=== PATIENT | female | born 1945 | race Caucasian/White ===

== ENCOUNTER 2020-03-09 22:47 | Observation (INO) | payer OTHER ==
[2020-03-10 01:31] LABS: Absolute Lymphocytes (CBC) 1.9 K/uL (0.7-4.9); Basophils % 0.9 % (0-1.3); Hematocrit 43.9 % (36.0-45.0); Lymphocytes % 23.1 % (15.3-44.8); MPV 7.9 fL (7.6-11.3); RBC Red Blood Cell Count 4.76 M/uL (3.86-4.86)
[2020-03-10 01:32] LABS: Protime INR 0.96
[2020-03-10 01:50] LABS: ALT/SGPT 17 U/L (12-78); Albumin 3.8 g/dL (3.4-5.0); Alkaline Phosphatase 44 U/L (45-117); BUN Blood Urea Nitrogen 7 mg/dL (7-18); Bicarbonate 24 mmol/L (21-32); Bilirubin Direct < 0.1 mg/dL (0-0.2); Bilirubin Total 0.4 mg/dL (0.2-1.0); Glucose Level 93 mg/dL (74-106); NT PRO-BNP 2042 pg/mL (<450); Protein, Total 7.2 g/dL (6.4-8.2); Sodium Level 134 mmol/L (136-145); Troponin (Emerg Dept Use Only) 0.04 ng/mL (0.0-0.045)
[2020-03-10 01:55] LABS: AST/SGOT 26 U/L (15-37); Magnesium 2.1 mg/dL (1.8-2.4); Potassium 3.6 mmol/L (3.5-5.1)
[2020-03-10] MEDS ORDERED: TETANUS & DIPHTHERIA TOX,ADULT 0.5 ML VIAL ONE (02:23)
[2020-03-10] MEDS ORDERED: ACETAMINOPHEN 500 MG TAB ONE (02:23)
--- NOTE | 2020-03-10 03:06 | EDPHYS ---
Physician Documentation [facility] Name: Mari Dawkins Age: 74 yrs Sex: Female : 1945 Arrival Date: 03/09/2020 Time: 22:51 Bed 13 Private MD: ED Physician Santhosh Bullock HPI: 03/09 23:51 This 74 yrs old Female presents to ER via Wheelchair with complaints of Fall mh7 Injury, Head Injury Without LOC-Adult. 23:51 Details of fall: The patient fell from an upright position, while standing. Onset: The mh7 symptoms/episode began/occurred today, at 22:00. Associated injuries: The patient sustained injury to the head, contusion, hematoma, right shoulder, right wrist, right hand, abrasion, contusion, painful injury, left hand, abrasion, contusion. Severity of symptoms: At their worst the symptoms were moderate, earlier today, in the emergency department the symptoms have improved, moderately. Historical: - Allergies: 23:12 Codeine; lp1 - Home Meds: 23:12 carvedilol 12.5 mg Oral tab 1 tab 2 times per day [Active]; losartan 100 mg Oral tab 1 lp1 tab once daily [Active]; - PMHx: 23:12 High Cholesterol; Hypertension; lp1 - PSHx: 23:12 None; lp1 - Immunization history:: Adult Immunizations up to date. - Social history:: Smoking status: Patient reports the use of cigarette tobacco products, smokes one-half pack cigarettes per day. - Immunization history: Last tetanus immunization: unknown. ROS: 23:51 Constitutional: Negative for fever, chills, and weight loss, Eyes: Negative for injury, mh7 pain, redness, and discharge, ENT: Negative for injury, pain, and discharge, Neck: Negative for injury, pain, and swelling, Cardiovascular: Negative for chest pain, palpitations, and edema, Respiratory: Negative for shortness of breath, cough, wheezing, and pleuritic chest pain, Abdomen/GI: Negative for abdominal pain, nausea, vomiting, diarrhea, and constipation, Back: Negative for injury and pain, : Negative for injury, bleeding, discharge, and swelling, Neuro: Negative for headache, weakness, numbness, tingling, and seizure, Psych: Negative for depression, anxiety, suicide ideation, homicidal ideation, and hallucinations, Allergy/Immunology: Negative for hives, rash, and allergies, Endocrine: Negative for neck swelling, polydipsia, polyuria, polyphagia, and marked weight changes, Hematologic/Lymphatic: Negative for swollen nodes, abnormal bleeding, and unusual bruising. Exam: 23:51 Constitutional: This is a well developed, well nourished patient who is awake, alert, mh7 and in no acute distress. 23:51 Eyes: Pupils equal round and reactive to light, extra-ocular motions intact. Lids and lashes normal. Conjunctiva and sclera are non-icteric and not injected. Cornea within normal limits. Periorbital areas with no swelling, redness, or edema. ENT: Nares patent. No nasal discharge, no septal abnormalities noted. Tympanic membranes are normal and external auditory canals are clear. Oropharynx with no redness, swelling, or masses, exudates, or evidence of obstruction, uvula midline. Mucous membranes moist. 23:51 Neck: Trachea midline, no thyromegaly or masses palpated, and no cervical lymphadenopathy. Supple, full range of motion without nuchal rigidity, or vertebral point tenderness. No Meningismus. Chest/axilla: Normal chest wall appearance and motion. Nontender with no deformity. No lesions are appreciated. Cardiovascular: Regular rate and rhythm with a normal S1 and S2. No gallops, murmurs, or rubs. Normal PMI, no JVD. No pulse deficits. Respiratory: Lungs have equal breath sounds bilaterally, clear to auscultation and percussion. No rales, rhonchi or wheezes noted. No increased work of breathing, no retractions or nasal flaring. Abdomen/GI: Soft, non-tender, with normal bowel sounds. No distension or tympany. No guarding or rebound. No evidence of tenderness throughout. Back: No spinal tenderness. No costovertebral tenderness. Full range of motion. Neuro: Awake and alert, GCS 15, oriented to person, place, time, and situation. Cranial nerves II-XII grossly intact. Motor strength 5/5 in all extremities. Sensory grossly intact. Cerebellar exam normal. Normal gait. Psych: Awake, alert, with orientation to person, place and time. Behavior, mood, and affect are within normal limits. 23:51 Head/face: Noted is contusion, that is superficial, of the forehead, hematoma, that is moderate, of the forehead. 23:51 ENT: TM's: hemotympanum, is not appreciated. Vital Signs: 23:12 BP 158 / 82; Pulse 57; Resp 18; Temp 97.6(TE); Pulse Ox 99% on R/A; Weight 68.04 kg lp1 (R); Height 5 ft. 2 in. (157.48 cm); Pain 0/10; 23:30 BP 165 / 96; Pulse 70; Resp 16; Temp 98.3; Pulse Ox 99% on R/A; ll2 03/10 00:30 BP 129 / 54; Pulse 69; Resp 16; Pulse Ox 99% on R/A; ll2 01:30 BP 142 / 71; Pulse 53; Resp 14; Pulse Ox 98% on R/A; ll2 02:30 BP 141 / 60; Pulse 78; Resp 15; Pulse Ox 99% on R/A; ll2 02:56 BP 160 / 68 Supine; Pulse 55; ll2 02:56 BP 141 / 60 Sitting; Pulse 38; ll2 02:56 BP 156 / 62 Standing; Pulse 39; ll2 03:30 BP 158 / 60; Pulse 65; Resp 17; Pulse Ox 99% on R/A; ll2 03/09 23:12 Body Mass Index 27.44 (68.04 kg, 157.48 cm) lp1 Jeanmarie Coma Score: 03/09 23:13 Eye Response: spontaneous(4). Verbal Response: oriented(5). Motor Response: obeys lp1 commands(6). Total: 15. Trauma Score (Adult): 23:13 Eye Response: spontaneous(1); Verbal Response: oriented(1); Motor Response: obeys lp1 commands(2); Systolic BP: > 89 mm Hg(4); Respiratory Rate: 10 to 29 per min(4); Jeanmarie Score: 15; Trauma Score: 12 MDM: 03/10 03:02 Differential diagnosis: abrasion, closed head injury, contusion, fracture, laceration, mh7 sprain. Data reviewed: vital signs, nurses notes, old medical records, lab test result(s), cardiac enzymes, CBC, electrolytes, EKG, radiologic studies, CT scan, plain films. Data interpreted: Pulse oximetry: on room air is 99 %. Interpretation: normal. Counseling: I had a detailed discussion with the patient and/or guardian regarding: the historical points, exam findings, and any diagnostic results supporting the discharge/admit diagnosis, the presence of at least one elevated blood pressure reading (>120/80) during this emergency department visit, lab results, radiology results, the need for further work-up and treatment in the hospital. Response to treatment: the patient's symptoms have markedly improved after treatment. 03:05 Patient medically screened. [facility] 03/09 23:51 Order name: Basic Metabolic Panel [facility] 03/09 23:51 Order name: CBC with Diff; Complete Time: 01:44 [facility] 03/09 23:51 Order name: LFT's; Complete Time: 02:03 [facility] 03/09 23:51 Order name: Magnesium; Complete Time: 02:03 [facility] 03/09 23:51 Order name: NT PRO-BNP; Complete Time: 02:03 [facility] 03/09 23:51 Order name: PT-INR; Complete Time: 01:44 [facility] 03/09 23:51 Order name: Troponin (emerg Dept Use Only); Complete Time: 02:03 [facility] 03/09 23:51 Order name: Basic Metabolic Panel; Complete Time: 02:03 [facility] 03/10 03:54 Order name: COVID-19 lp1 03/10 04:03 Order name: CORONAVIRUS [facility] 03/10 04:09 Order name: Urine Dipstick--Ancillary (enter results) tt3 03/10 05:34 Order name: SARS-COV-2 RT PCR [facility] 03/10 08:30 Order name: Troponin I [facility] 03/10 08:30 Order name: T4 Free [facility] 03/09 23:51 Order name: XRAY Chest (1 view) [facility] 03/09 23:51 Order name: EKG; Complete Time: 23:51 [facility] 03/09 23:51 Order name: Cardiac monitoring; Complete Time: 01:21 [facility] 03/09 23:51 Order name: EKG - Nurse/Tech; Complete Time: 02:30 [facility] 03/09 23:51 Order name: IV Saline Lock; Complete Time: 01:21 [facility] 03/09 23:51 Order name: CT Head C Spine [facility] 03/09 23:51 Order name: Shoulder Right (2 View) XRAY [facility] 03/09 23:51 Order name: Wrist Right 3 View XRAY [facility] 03/09 23:51 Order name: Hand Right 3 View XRAY [facility] 03/09 23:51 Order name: Hand Left 3 View XRAY [facility] 03/10 08:30 Order name: Thyroid Stimulating Hormone [facility] 03/10 09:30 Order name: US [facility] 03/10 10:41 Order name: MRI [facility] 03/10 12:33 Order name: Troponin I [facility] 03/09 23:51 Order name: Labs collected and sent; Complete Time: : [facility] 03/09 23:51 Order name: O2 Per Protocol; Complete Time: : [facility] 03/09 23:51 Order name: O2 Sat Monitoring; Complete Time: [facility] 03/09 23:51 Order name: Urine Dipstick-Ancillary (obtain specimen); Complete Time: 04:06 [facility] 03/10 03:08 Order name: Orthostatics; Complete Time: 04:06 la1 Administered Medications: 02:30 Drug: Tylenol 1000 mg Route: PO; ll2 03:00 Follow up: Response: No adverse reaction 2 02:31 Drug: Tetanus-Diphtheria Toxoid Adult 0.5 ml {Motor Room Controller: [employer]. Exp: ll2 06/19/2021. Lot #: [id number]. } Route: IM; Site: right deltoid; 03:30 Follow up: Response: No adverse reaction 2 Disposition: 03/10/20 03:05 Hospitalization ordered by David Freire for Observation. Preliminary diagnosis are Near Syncope, Multiple Contusions/Abrasions. - Bed requested for [facility] ER HOLD. - Status is Observation. ph - Condition is Stable. - Problem is new. - Symptoms have improved. Signatures: Dispatcher [employer] [facility] Makayla Garcia RN RN lp1 Deacon Davis, VESSEL CREW MEMBER-C [employer]SEL [employer] MEMBER-Cla1 Carri Pro RN RN ph Garcia, Cindy, RN RN cg Johanna Leigh RN RN 2 Santhosh Bullock MD MD 7 Corrections: (The following items were deleted from the chart) 03:39 03:05 Hospitalization Ordered by David Freire MD for Observation. Preliminary cg diagnosis is Near Syncope; Multiple Contusions/Abrasions. Bed requested for Telemetry/MedSurg (observation). Status is Observation. Condition is Stable. Problem is new. Symptoms have improved. mh7 14:29 03:39 03/10/2020 03:05 Hospitalization Ordered by David Freire MD for Observation. ph Preliminary diagnosis is Near Syncope; Multiple Contusions/Abrasions. Bed requested for [facility] ER HOLD. Status is Observation. Condition is Stable. Problem is new. Symptoms have improved. cg
--- NOTE | 2020-03-10 03:06 | ER ---
Nurse's Notes [facility] Name: Mari Dawkins Age: 74 yrs Sex: Female : 1945 Arrival Date: 03/09/2020 Time: 22:51 Bed 13 Private MD: Diagnosis: Near Syncope;Multiple Contusions/Abrasions Presentation: 03/09 23:10 Chief complaint: Patient states: Reports got dizzy while in the kitchen and fell, lp1 hitting head on stove; Denies LOC; reports abrasions to right forearm. Care prior to arrival: None. Mechanism of Injury: Fall from standing position. Trauma event details: Injury occurred in the [facility], Injury occurred: at home. Injury occurred: March 09, 2020 Injury occurred at: 22:00. 23:10 Acuity: TREASURE 2 lp1 23:10 Method Of Arrival: Wheelchair lp1 23:12 Coronavirus screen: Client denies travel out of the [place] in the last 14 days. At this lp1 time, the client does not indicate any symptoms associated with coronavirus-19. Ebola Screen: No symptoms or risks identified at this time. Initial Sepsis Screen: Does the patient meet any 2 criteria? No. Patient's initial sepsis screen is negative. Does the patient have a suspected source of infection? No. Patient's initial sepsis screen is negative. Risk Assessment: Do you want to hurt yourself or someone else? Patient reports no desire to harm self or others. Onset of symptoms was March 09, 2020 at 22:00. Trauma Activation: Alert Physician: ED Physician; Name: Dr. Bullock; Notified At: 23:17; Arrived At: 23:17 Physician: General Surgeon; Name: ; Notified At: 23:17; Arrived At: Physician: Radiology; Name: Oswald Herrmann; Notified At: 23:17; Arrived At: 23:20 Physician: Respiratory; Name: ; Notified At: 23:17; Arrived At: Physician: Lab; Name: ; Notified At: 23:17; Arrived At: Historical: - Allergies: 23:12 Codeine; lp1 - Home Meds: 23:12 carvedilol 12.5 mg Oral tab 1 tab 2 times per day [Active]; losartan 100 mg Oral tab 1 lp1 tab once daily [Active]; - PMHx: 23:12 High Cholesterol; Hypertension; lp1 - PSHx: 23:12 None; lp1 - Immunization history:: Adult Immunizations up to date. - Social history:: Smoking status: Patient reports the use of cigarette tobacco products, smokes one-half pack cigarettes per day. - Immunization history: Last tetanus immunization: unknown. Screenin:13 Abuse screen: Denies threats or abuse. Denies injuries from another. Nutritional lp1 screening: No deficits noted. Tuberculosis screening: No symptoms or risk factors identified. Primary Survey: 23:14 NO uncontrolled hemorrhage observed. A: The patient is alert. Airway: patent, No lp1 supplemental oxygen in use on arrival. Breathing/Chest: Respiratory pattern: regular, Respiratory effort: spontaneous, unlabored. Circulation: Skin color: pink, Skin temperature: warm, dry. Disability Alert. Exposure/Environment: Obvious injury(ies) are noted at this time: hematoma noted to forehead. 03/10 01:00 Reassessment Breathing/Chest Respiratory pattern Regular Respiratory effort Spontaneous.ll2 02:00 Reassessment Airway Airway Patent. ll2 Assessment: 03/09 23:40 General: Appears in no apparent distress. Behavior is calm, cooperative, appropriate ll2 for age. Pain: Complains of pain in forehead and left hand. Neuro: Level of Consciousness is awake, alert, obeys commands, Oriented to person, place, time, situation. Cardiovascular: Patient's skin is warm and dry. Respiratory: Airway is patent Respiratory effort is even, unlabored, Respiratory pattern is regular, symmetrical. GI: No signs and/or symptoms were reported involving the gastrointestinal system. : No signs and/or symptoms were reported regarding the genitourinary system. EENT: No signs and/or symptoms were reported regarding the EENT system. Derm: large knot to forehead. Musculoskeletal: Circulation, motion, and sensation intact. Range of motion: intact in all extremities. 03/10 00:40 Reassessment: Patient and/or family updated on plan of care and expected duration. Pain ll2 level reassessed. Patient is alert, oriented x 3, equal unlabored respirations, skin warm/dry/pink. 01:44 Reassessment: Patient and/or family updated on plan of care and expected duration. Pain ll2 level reassessed. Patient is alert, oriented x 3, equal unlabored respirations, skin warm/dry/pink. 02:45 Reassessment: Patient and/or family updated on plan of care and expected duration. Pain ll2 level reassessed. Patient is alert, oriented x 3, equal unlabored respirations, skin warm/dry/pink. pt moved to hospital bed, resting comfortably. Vital Signs: 03/09 23:12 BP 158 / 82; Pulse 57; Resp 18; Temp 97.6(TE); Pulse Ox 99% on R/A; Weight 68.04 kg lp1 (R); Height 5 ft. 2 in. (157.48 cm); Pain 0; 23:30 BP 165 / 96; Pulse 70; Resp 16; Temp 98.3; Pulse Ox 99% on R/A; ll2 03/10 00:30 BP 129 / 54; Pulse 69; Resp 16; Pulse Ox 99% on R/A; ll2 01:30 BP 142 / 71; Pulse 53; Resp 14; Pulse Ox 98% on R/A; ll2 02:30 BP 141 / 60; Pulse 78; Resp 15; Pulse Ox 99% on R/A; ll2 02:56 BP 160 / 68 Supine; Pulse 55; ll2 02:56 BP 141 / 60 Sitting; Pulse 38; ll2 02:56 BP 156 / 62 Standing; Pulse 39; ll2 03:30 BP 158 / 60; Pulse 65; Resp 17; Pulse Ox 99% on R/A; ll2 03/09 23:12 Body Mass Index 27.44 (68.04 kg, 157.48 cm) lp1 Jeanmarie Coma Score: 03/09 23:13 Eye Response: spontaneous(4). Verbal Response: oriented(5). Motor Response: obeys lp1 commands(6). Total: 15. Trauma Score (Adult): 23:13 Eye Response: spontaneous(1); Verbal Response: oriented(1); Motor Response: obeys lp1 commands(2); Systolic BP: > 89 mm Hg(4); Respiratory Rate: 10 to 29 per min(4); Jeanmarie Score: 15; Trauma Score: 12 ED Course: 22:51 Patient arrived in ED. cf2 23:11 Triage completed. lp1 23:11 Arm band placed on left wrist. lp1 23:14 Patient maintains SpO2 saturation greater than 95% on room air. lp1 23:34 Santhosh Bullock MD is Attending Physician. mh7 23:43 Johanna Leigh, RN is Primary Nurse. ll2 23:45 No provider procedures requiring assistance completed. ll2 03/10 00:29 CT Head C Spine In Process Unspecified. EDMS 01:00 Patient has correct armband on for positive identification. Placed in gown. Bed in low ll2 position. Call light in reach. Side rails up X 1. Initial lab(s) drawn, sent to lab. 01:20 Initial lab(s) drawn, by me, sent to lab. Inserted saline lock: 20 gauge in right lp1 antecubital area, using aseptic technique. Blood collected. 01:32 XRAY Chest (1 view) In Process Unspecified. EDMS 01:33 Shoulder Right (2 View) XRAY In Process Unspecified. EDMS 01:34 Wrist Right 3 View XRAY In Process Unspecified. EDMS 01:35 Hand Right 3 View XRAY In Process Unspecified. EDMS 01:36 Hand Left 3 View XRAY In Process Unspecified. EDMS 03:04 David Freire MD is Hospitalizing Provider. mh7 04:06 CORONAVIRUS Sent. ll2 04:06 Basic Metabolic Panel Sent. ll2 04:06 COVID-19 Sent. ll2 04:13 Thermoregulation: warm blanket given to patient. ll2 Administered Medications: 02:30 Drug: Tylenol 1000 mg Route: PO; ll2 03:00 Follow up: Response: No adverse reaction ll2 02:31 Drug: Tetanus-Diphtheria Toxoid Adult 0.5 ml {And Taxi Instructor Bus Trolley: [employer] Exp: ll2 06/19/2021. Lot #: [id number]. } Route: IM; Site: right deltoid; 03:30 Follow up: Response: No adverse reaction ll2 Outcome: 03:05 Decision to Hospitalize by Provider. mh7 04:13 Patient's length of stay in the Emergency Department was greater than 2 hours. due to ll2 imaging Patient's length of stay extended due to 14:29 Patient left the ED. ph Signatures: Dispatcher [employer] EDMS Makayla Garcia RN RN lp1 Carri Pro RN RN ph Michelle Montague 2 Johanna Leigh RN RN ll2 Santhosh Bullock MD MD 7
--- NOTE | 2020-03-10 03:37 | P.HP ---
Certification for Inpatient Patient admitted to: Observation With expected LOS: <2 Midnights Patient will require the following post-hospital care: None Practitioner: I am a practitioner with admitting privileges, knowledge of patient current condition, hospital course, and medical plan of care. Services: Services provided to patient in accordance with Admission requirements found in Title 42 Section 412.3 of the Code of Federal Regulations <Deacon Davis - Last Filed: 03/10/20 03:34> Patient History Date of Service: 03/10/20 Primary Care Provider: Dr. Lott (OOT currently) Reason for admission: Syncope History of Present Illness: 74-year-old female with history of hypertension, hyperlipidemia, vertigo presents to the emergency department for syncope and fall. Patient reports that she is standing in her kitchen and had a fall, she is unable to discern why she fell. Patient does have a history of falling due to vertigo but she states that she cannot say for sure that this was the cause tonight, states that this fall did seem different as she was not really feeling dizzy prior to falling. Patient did fall and hit her head, patient had chest x-ray, extremity x-ray, head C-spine CT in the emergency department all of which were negative for acute findings. Labs unremarkable aside from elevated BNP 2042. Patient denies any chest pain, shortness of breath, palpitations, headache. No focal neurological deficits noted on exam, patient awake alert oriented x3. Patient states she is feeling well at this time, patient noted to be mildly bradycardic on threat monitoring analyst at bedside with heart rate as low as the high 40s EKG with sinus bradycardia. Patient does take beta-lety. Orthostatics vital signs pending. ED provider wishes to admit patient for further evaluation and management. - Past Medical/Surgical History Diabetic: No -: HTN -: High Cholesterol -: Hyst -: Tonsilectomy Psychosocial/ Personal History: Patient is retired and lives with her - Family History Father -: Cancer Notes: Lung CA Mother -: Cancer Notes: Uterine Cancer Sister Notes: TB - Social History Smoking Status: Never smoker Alcohol use: Yes CD- Drugs: No Caffeine use: Yes Place of Residence: Home <Deacon Davis - Last Filed: 03/10/20 03:34> Date of Service: 03/10/20 <David Freire - Last Filed: 03/19/20 00:50> Allergies codeine Allergy (Mild, Verified 11/24/16 23:04) Unknown Home Medications: Ascorbic Acid [Vitamin C*] 500 mg PO DAILY 11/24/16 Aspirin [Aspirin EC 81 MG] 81 mg PO DAILY 11/24/16 Fluticasone [Flonase 50MCG Nasal Eagle*] 2 spray SERINA DAILY 11/24/16 Losartan Potassium 100 mg PO DAILY 11/24/16 Multivitamin [Multiple Vitamins] 1 tab PO DAILY 11/24/16 Raloxifene HCl [Evista*] 60 mg PO DAILY 11/24/16 carvediloL [Coreg*] 12.5 mg PO BID 11/24/16 Ciprofloxacin HCl [Cipro 500 MG Tablet] 500 mg PO BID #14 tab 12/03/16 Famotidine [Pepcid] 20 mg PO BID #60 tab 12/03/16 Review of Systems Unremarkable <Deacon Davis - Last Filed: 03/10/20 03:34> Physical Examination - Physical Exam General: Alert, In no apparent distress HEENT: Atraumatic, PERRLA, Mucous membr. moist/pink, EOMI, Sclerae nonicteric Neck: Supple, 2+ carotid pulse no bruit, No LAD, Without JVD or thyroid abnormality Respiratory: Clear to auscultation bilaterally, Normal air movement Cardiovascular: Regular rate/rhythm, Normal S1 S2 Gastrointestinal: Normal bowel sounds, No tenderness Musculoskeletal: No tenderness Integumentary: No rashes Neurological: Normal speech, Normal strength at 5/5 x4 extr, Normal tone, Normal affect - Studies Laboratory Data (last 24 hrs) 03/10/20 01:15: PT 11.3, INR 0.96 03/10/20 01:15: WBC 8.1, Hgb 14.7, Hct 43.9, Plt Count 291 03/10/20 01:15: Sodium 134 L, Potassium 3.6, BUN 7, Creatinine 0.53 L, Glucose 93, Magnesium 2.1, Total Bilirubin 0.4, AST 26, ALT 17, Alkaline Phosphatase 44 L <Deacon Davis - Last Filed: 03/10/20 03:34> Assessment and Plan - Plan Assessment Syncope and collapse with bradycardia Hypertension Hyperlipidemia Vertigo Plan Syncope and collapse with bradycardia: Monitor on telemetry, hold beta-lety. Echocardiogram, carotid Doppler, MRI without contrast ordered. Orthostatics vital signs pending. DVT prophylaxis with Lovenox. Hypertension: Hold metoprolol, continue other home medication. Hyperlipidemia: Obtain and continue home medications Vertigo: Obtain and continue home medications. Patient without any nystagmus on exam, not currently feeling dizzy. Discharge Plan: Home Plan to discharge in: 24 Hours - Advance Directives Does patient have a Living Will: No Does patient have a Durable POA for Healthcare: Yes - Code Status/Comfort Care Code Status Assessed: Yes (Full code) Critical Care: No Time Spent Managing Pts Care (In Minutes): 55 <Deacon Davis - Last Filed: 03/10/20 03:34> Date of Service: 03/10/20 Chart reviewed. The events of the last 24 hours noted. Patient will be admitted and worked up for further evaluation. <David Freire - Last Filed: 03/19/20 00:50>
[2020-03-10] MEDS ORDERED: ACETAMINOPHEN 500 MG TAB PO PRN (04:21)
[2020-03-10] MEDS ORDERED: NA CHLORIDE 0.9% 1,000 ML IV SCH (04:21)
[2020-03-10] MEDS ORDERED: ONDANSETRON 4 MG/2 ML VIAL IV PRN (04:21)
[2020-03-10] MEDS ORDERED: NA CHLORIDE 0.9% 1,000 ML ONE (07:11)
--- NOTE | 2020-03-10 07:20 | EKG ---
Test Date: 2020-03-10 Test Time: 02:19:50 Electric Meter Setter: TROY MEASUREMENT RESULTS: Intervals: Rate: 65 GA: 170 QRSD: 168 QT: 528 QTc: 549 [place]: P: 76 GA: 170 QRS: -22 T: 96 INTERPRETIVE STATEMENTS: Normal sinus rhythm Biatrial enlargement Left bundle branch block Abnormal ECG Compared to ECG 07/19/2014 23:39:47 No significant changes Electronically Signed On 03-10-20 07:20:12 [employer] REFINISHER by Filiberto Crane
[2020-03-10 07:37] VITALS: BMI 28.4
--- NOTE | 2020-03-10 08:06 | RAD REPORT ---
EXAM DESCRIPTION: Teodora Single View03/10/2020 1:32 am CLINICAL HISTORY: Chest pain COMPARISON: none FINDINGS: The lungs appear clear of acute infiltrate. The heart is normal size IMPRESSION: No acute abnormalities displayed
--- NOTE | 2020-03-10 08:07 | RAD REPORT ---
EXAM DESCRIPTION: RAD - Wrist Right 3 View - 03/10/2020 1:34 am CLINICAL HISTORY: Right wrist pain status post injury FINDINGS: No fracture or dislocation is seen. If the patient continues to have symptoms to suggest a n occult fracture then a followup plain film series in 7 days would be recommended. The bones are osteoporotic
--- NOTE | 2020-03-10 08:09 | RAD REPORT ---
EXAM DESCRIPTION: RAD - Hand Right 3 View - 03/10/2020 1:34 am CLINICAL HISTORY: Right hand pain status post injury FINDINGS: No fracture or dislocation is seen. Bones are osteoporotic
--- NOTE | 2020-03-10 08:10 | RAD REPORT ---
EXAM DESCRIPTION: RAD -Hand Left 3 View - 03/10/2020 1:35 am CLINICAL HISTORY: Left hand pain status post injury FINDINGS: No fracture or dislocation is seen. The bones are osteoporotic
[2020-03-10 08:11] LABS: Troponin I 0.05 ng/mL (0.0-0.045)
[2020-03-10] MEDS ORDERED: POTASSIUM CL SA 10 MEQ TAB PO ONE ×2 (08:12→09:00)
--- NOTE | 2020-03-10 08:12 | RAD REPORT ---
EXAM DESCRIPTION: RAD - Shoulder Right 2 View - 03/10/2020 1:33 am CLINICAL HISTORY: Right shoulder pain FINDINGS: The bones are osteoporotic. Cortical regularity involves the inferior aspect of the distal acromion process. This is equivocal fo r a fracture. If clinically indicated further evaluation could be obtained with CT. Otherwise, no fracture or dislocation
[2020-03-10 08:29] LABS: Thyroid Stimulating Hormone 3.81 uIU/mL (0.360-3.740)
--- NOTE | 2020-03-10 09:29 | RAD REPORT ---
EXAM DESCRIPTION: USCarotid Artery Bilateral03/10/2020 7:43 am CLINICAL HISTORY: syncope COMPARISON: None FINDINGS: The velocity of the right internal carotid artery equals 70 cm/sec. The right ICA/CCA rati o 1. The velocity of the left internal carotid artery equals 76 cm/sec. The left ICA/CCA ratio .8 Mild plaque is present within the carotid arteries. The vertebral arteries demonstrate antegrade flow IMPRESSION: Mild plaque within the carotid arteries without evidence of a hemodynamically significan t stenosis NASCET criteria used. Mild 0-49% stenosis Moderate 50-69% stenosis Severe 70-99% stenosis
--- NOTE | 2020-03-10 10:40 | RAD REPORT ---
EXAM DESCRIPTION: MRI - Brain Wo Cont - 03/10/2020 9:22 am CLINICAL HISTORY: Syncope COMPARISON: March 09, 2020 cat scan TECHNIQUE: Axial, sagittal, and coronal magnetic images of the brain were obtained. Contrast was not requested FINDINGS: Frontal scalp hematoma is unchanged. Mild signal within periventricular, deep and subcortical white matter likely ischemic changes seconda ry to small vessel disease 2.3 centimeter fluid collection along the left frontal convexity may represent an arachnoid cyst. Diffusion-weighted/ADC mapping does not reveal evidence of acute infarction. The ventricles are normal caliber. Fluid within the sinuses/mastoids is not noted IMPRESSION: No acute abnormality is displayed
--- NOTE | 2020-03-10 12:09 | P.DS ---
Discharge Date: 03/10/20 Primary Care Provider: Dr. Lott (OOT currently) Disposition: ROUTINE DISCHARGE Discharge Condition: GOOD Reason for Admission: Syncope Brief History of Present Illness: Patient is a 74-year-old female with history of hypertension, hyperlipidemia, vertigo presents to the emergency department for syncope and fall. Patient reports that she is standing in her kitchen and had a fall, she is unable to discern why she fell. Patient does have a history of falling due to vertigo but she states that she cannot say for sure that this was the cause tonight, states that this fall did seem different as she was not really feeling dizzy prior to falling. Patient did fall and hit her head, patient had chest x- ray, extremity x-ray, head C-spine CT in the emergency department all of which were negative for acute findings. Labs unremarkable aside from elevated BNP 2042. Patient denies any chest pain, shortness of breath, palpitations, headache. No focal neurological deficits noted on exam, patient awake alert oriented x3. Patient states she is feeling well at this time, patient noted to be mildly bradycardic on director cardiac at bedside with heart rate as low as the high 40s EKG with sinus bradycardia. Patient does take beta-lety. Orthostatics vital signs pending. ED provider wishes to admit patient for further evaluation and management. Hospital Course: Patient's workup was unremarkable. Carotid Doppler showed some mild plaquing. Echocardiogram did not reveal any significant abnormality. MRI did not reveal any infarct. At this time, patient is stable for discharge with outpatient follow with cardiology and neurology for further evaluation of syncope. Vital Signs/Physical Exam: Temp Pulse Resp BP Pulse Ox 98.8 F 73 16 144/80 H 100 03/10/20 08:00 03/10/20 08:00 03/10/20 08:00 03/10/20 08:00 03/10/20 08:00 General: Alert, In no apparent distress, Oriented x3 Laboratory Data at Discharge: WBC 8.1 K/uL (4.3-10.9) 03/10/20 01:15 Hgb 14.7 g/dL (12.0-15.0) 03/10/20 01:15 Hct 43.9 % (36.0-45.0) 03/10/20 01:15 Plt Count 291 K/uL (152-406) 03/10/20 01:15 PT 11.3 SECONDS (9.5-12.5) 03/10/20 01:15 INR 0.96 03/10/20 01:15 Sodium 134 mmol/L (136-145) L 03/10/20 01:15 Potassium 3.6 mmol/L (3.5-5.1) 03/10/20 01:15 BUN 7 mg/dL (7-18) 03/10/20 01:15 Creatinine 0.53 mg/dL (0.55-1.3) L 03/10/20 01:15 Glucose 93 mg/dL (74-106) 03/10/20 01:15 Magnesium 2.1 mg/dL (1.8-2.4) 03/10/20 01:15 Total Bilirubin 0.4 mg/dL (0.2-1.0) 03/10/20 01:15 AST 26 U/L (15-37) 03/10/20 01:15 ALT 17 U/L (12-78) 03/10/20 01:15 Alkaline Phosphatase 44 U/L (45-117) L 03/10/20 01:15 Troponin I 0.05 ng/mL (0.0-0.045) H 03/10/20 06:00 Home Medications: Ascorbic Acid [Vitamin C*] 500 mg PO DAILY 11/24/16 Aspirin [Aspirin EC 81 MG] 81 mg PO DAILY 11/24/16 Fluticasone [Flonase 50MCG Nasal [place]*] 2 spray SERINA DAILY 11/24/16 Losartan Potassium 100 mg PO DAILY 11/24/16 Multivitamin [Multiple Vitamins] 1 tab PO DAILY 11/24/16 Raloxifene HCl [Evista*] 60 mg PO DAILY 11/24/16 carvediloL [Coreg*] 12.5 mg PO BID 11/24/16 Ciprofloxacin HCl [Cipro 500 MG Tablet] 500 mg PO BID #14 tab 12/03/16 Famotidine [Pepcid] 20 mg PO BID #60 tab 12/03/16 Patient Discharge Instructions: OK TO DC IV AND DC HOME. FOLLOW-UP WITH PRIMARY CARE PROVIDER IN 1-2 WEEKS. FOLLOW-UP WITH CARDIOLOGY IN 1-2 WEEKS. RETURN TO THE ER IF symptoms worsen. CALL or TEXT DR. LY AT [phone] IF ANY QUESTIONS REGARDING HOSPITAL STAY. PLEASE CALL THE FLOOR AT [phone] IF ANY MEDICATION OR NURSING QUESTIONS. Diet: AHA Activity: Ad luda Followup: Filiberto Crane MD [ACTIVE - CAN ADMIT] - Jose Lott MD [Primary Care Provider] - Time spent managing pt's care (in minutes): 35
[2020-03-10 12:13] VITALS: BP 111/72; TEMP 98; O2SAT 99
--- NOTE | 2020-03-10 13:21 | RAD REPORT ---
EXAM DESCRIPTION: CT - Head C Spine Mpr Wo Con - 03/10/2020 8:58 am CLINICAL HISTORY: Trauma/pain COMPARISON: None available TECHNIQUE: Axial CT of the head obtained from the skull apex to the skull base without contrast. Axi al CT images of the cervical spine obtained from the skull base through the thoracic inlet. Sagittal and coronal reformatted images available. FINDINGS: CT head: No acute intracranial hemorrhage identified. No mass, mass effect, shift of the midline, abnormal ext ra-axial fluid collection or CT evidence of acute ischemic change identified. Mild enlargement of robert tricular system and sulcal spaces compatible with cerebral atrophy. Scattered areas of hypodensity in the supratentorial white matter are nonspecific and may represent sequela of chronic small vessel ischemic change. The visualized paranasal sinuses and the mastoids are clear. No skull fracture identified. Visual ized orbits and globes are unremarkable. Atherosclerotic calcification of the paraclinoid internal ca rotid arteries. Contusion in the left frontal and right lateral scalp subcutaneous soft tissues. Cervical CT: Straightening of the cervical lordosis may be secondary to patient positioning. The atlantoaxial, a tlantodental, and occipitoatlantal intervals are preserved. No fracture identified. Vertebral body height preserved. Prevertebral soft tissues are unremarkable. 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 Visualized skull base is intact. No fracture of the visualized facial bones. Visualized mastoid air c ells and paranasal sinuses are well aerated. Visualized thyroid is unremarkable. No cervical lymphadenopathy. No pneumothorax in the visualized lung apices. Carotid artery atherosclerosis. IMPRESSION: 1. No acute intracranial abnormality. 2. No acute fracture or subluxation of the cervical spine. 3. Multilevel degenerative change of the cervical spine. This exam was performed according to our departmental dose-optimization program, which includes autom ated exposure control, adjustment of the mA and/or kV according to patient size and/or use of iterati ve reconstruction technique. Electronically signed by: Irvin Artis 03/10/2020 12:38 AM ELECTROMEDICAL EQUIPMENT TECHNICIAN Due to temporary technical issues with the PACS/Fluency reporting system, reports are being signed by the in house radiologists without review as a courtesy to insure prompt reporting. The interpreting radiologist is fully responsible for the content of the report.
--- NOTE | 2020-03-10 14:47 | ECHO ---
HEIGHT: 5 ft 2 in WEIGHT: 155 lb 4.8 oz DATE OF STUDY: 03/10/[address]: Deacon Davis NP 2-DIMENSIONAL: YES M.MODE: YES DOPPLER: YES COLOR FLOW: YES TDS: PORTABLE: DEFINITY: BUBBLE STUDY: DIAGNOSIS: SYNCOPE CARDIAC HISTORY: CATHERIZATION: SURGERY: PROSTHETIC VALVE: PACEMAKER: MEASUREMENTS (cm) DIASTOLIC (NORMALS) SYSTOLIC (NORMALS) IVSd 1.0 (0.6-1.2) LA Diam (1.9-4.0) LVEF 59% LVIDd 4.5 (3.5-5.7) LVIDs 3.1 (2.0-3.5) %FS 31% LVPWd 1.0 (0.6-1.2) Ao Diam 2.5 (2.0-3.7) 2 DIMENSIONAL ASSESSMENT: RIGHT ATRIUM: NORMAL LEFT ATRIUM: NORMAL RIGHT VENTRICLE: NORMAL LEFT VENTRICLE: NORMAL TRICUSPID VALVE: NORMAL MITRAL VALVE: MITRAL ANNULAR CALCIFICATION PULMONIC VALVE: NORMAL AORTIC VALVE: SCLEROSIS PERICARDIAL EFFUSION: NONE AORTIC ROOT: LEFT VENTRICULAR WALL MOTION: NORMAL DOPPLER/COLOR FLOW: MILD TRICUSPID REGURGITATION. NORMAL RIGHT VENTRICULAR SYSTOLIC PRESSURE 35 mmHg. COMMENTS: MILD TRICUSPID REGURGITATION. NORMAL RIGHT VENTRICULAR SYSTOLIC PRESSURE. MITRAL ANNULAR CALCIFICATION. AORTIC SCLEROSIS, NO STENOSIS. NORMAL LEFT VENTRICULAR SIZE AND FUNCTION. TECHNOLOGIST: BRENDAN TODD
== END 2020-03-10 14:33 | disposition home or self-care (01) ==
LOC: ER 22:47 → ERHOLD 03-10 03:14
PROVIDERS: ADMIT Hospitalist; ATTEND Hospitalist
DX: R55 Syncope and collapse (principal); Z20.822 Contact with and (suspected) exposure to COVID-19; R94.31 Abnormal electrocardiogram [ECG] [EKG]; I10 Essential (primary) hypertension; E78.5 Hyperlipidemia, unspecified; E78.00 Pure hypercholesterolemia, unspecified; F17.210 Nicotine dependence, cigarettes, uncomplicated; Z23 Encounter for immunization
CPT/HCPCS: 93005; 93306; 85025; 80048; 36415; 83735; 85610; 80076; 84443; 84484 ×3; 84439; 83880; 70450; 72125; 71045; 73130 ×2; 73030; 73110; 90471; 93880; 70551; 90714; 99284; U0003; J7030; G0378 ×2; G0390

== ENCOUNTER 2020-11-12 22:47 | Observation (INO) | payer OTHER ==
[2020-11-13 00:38] LABS: Protime INR 1.02
[2020-11-13 00:40] LABS: Absolute Lymphocytes (CBC) 1.5 K/uL (0.7-4.9); Basophils % 0.5 % (0-1.3); Hematocrit 44.2 % (36.0-45.0); Lymphocytes % 13.8 % (15.3-44.8); MPV 7.6 fL (7.6-11.3); RBC Red Blood Cell Count 4.78 M/uL (3.86-4.86)
[2020-11-13 00:59] LABS: ALT/SGPT 19 U/L (12-78); AST/SGOT 25 U/L (15-37); Albumin 4.1 g/dL (3.4-5.0); Alkaline Phosphatase 51 U/L (45-117); BUN Blood Urea Nitrogen 8 mg/dL (7-18); Bicarbonate 20 mmol/L (21-32); Bilirubin Direct 0.3 mg/dL (0-0.2); Bilirubin Total 0.8 mg/dL (0.2-1.0); Glucose Level 96 mg/dL (74-106); Magnesium 1.8 mg/dL (1.8-2.4); Potassium 3.5 mmol/L (3.5-5.1); Protein, Total 7.3 g/dL (6.4-8.2); Sodium Level 133 mmol/L (136-145); Troponin (Emerg Dept Use Only) 0.05 ng/mL (0.0-0.045)
[2020-11-13 02:17] LABS: Urine Bacteria <20 /HPF (<20); Urine RBC NONE SEEN /HPF (NONE SEEN)
--- NOTE | 2020-11-13 02:58 | ER ---
Nurse's Notes [facility] Name: Mari Dawkins Age: 75 yrs Sex: Female : 1945 Arrival Date: 11/12/2020 Time: 22:52 Bed 18 Private MD: Jose Lott Diagnosis: Weakness Presentation: 11/12 23:01 Chief complaint: Patient states: Pt states she was sitting in the chair outside enjoying a beer when she went to get up and her legs gave out from under her. was present and states she slowly went to the ground. Pt denies hitting head, denies LOC/Syncope, denies SOB, CP, dizziness, Abd pain. Pt states she has been falling for years and frequently over the past several months. States she is under the care of "Dr. Buenrostro" (neurologist) and he is assessing the reason for her falls. Pt states she has no pain but does have some abrasions to her knees and arms. Pt has a lot of old bruises and skin tears from previous falls/injuries. Care prior to arrival: None. Mechanism of Injury: Fall from standing position. 23:01 Acuity: TREASURE 3 wg 23:01 Method Of Arrival: Ambulatory wg 23:52 Initial Sepsis Screen: Does the patient have a suspected source of infection? No. bc5 Patient's initial sepsis screen is negative. Initial Sepsis Screen: Does the patient meet any 2 criteria? No. Patient's initial sepsis screen is negative. Risk Assessment: Do you want to hurt yourself or someone else? Patient reports no desire to harm self or others. Onset of symptoms is unknown. 23:52 Coronavirus screen: Vaccine status: Patient reports receiving the 2nd dose of the covid bc5 vaccine. Client denies travel out of the [place] in the last 14 days. Ebola Screen: Patient negative for fever greater than or equal to 101.5 degrees Fahrenheit, and additional compatible Ebola Virus Disease symptoms Patient denies exposure to infectious person. Patient denies travel to an Ebola-affected area in the 21 days before illness onset. No symptoms or risks identified at this time. 11/13 00:06 Trauma event details: Injury occurred: at home. bc5 Trauma Activation: Not Applicable Physician: ED Physician; Name: ; Notified At: ; Arrived At: Physician: General Surgeon; Name: ; Notified At: ; Arrived At: Physician: Radiology; Name: ; Notified At: ; Arrived At: Physician: Respiratory; Name: ; Notified At: ; Arrived At: Physician: Lab; Name: ; Notified At: ; Arrived At: Historical: - Allergies: 11/12 23:13 Codeine; wg 23:13 Morphine; wg - Home Meds: 23:13 losartan Oral [Active]; wg 23:14 aspirin 81 mg oral tab [Active]; wg 23:17 Meclizine Oral [Active]; raloxifene oral [Active]; carvedilol Oral [Active]; wg fenofibrate oral [Active]; - PMHx: 23:13 Hypertension; High Cholesterol; wg - Code Status:: Full code. - Immunization history: Last tetanus immunization:. - Social history:: Smoking status: Patient denies any tobacco usage or history of. Screenin:01 Abuse screen: Denies threats or abuse. Denies injuries from another. Tuberculosis wg screening: No symptoms or risk factors identified. 23:16 Fall risk At risk due to prior history of falls. wg 11/13 00:04 Nutritional screening: No deficits noted. Fall Risk Fall in past 12 months (25 points). bc5 No secondary diagnosis (0 pts). No IV (0 pts). Ambulatory Aid- Crutches/Cane/Walker (15 pts). Gait- Impaired (20 pts.). Mental Status- Oriented to own ability (0 pts). Total Perkins Fall Scale indicates High Risk Score (45 or more points). Fall prevention measures have been instituted. Side Rails Up X 2 Placed Close to Nursing Station Frequent Obs/Assessments Occuring Family Present and informed to notify staff if the need to leave the bedside As available patient and family educated on Fall Prevention Program and Strategies. Primary Survey: 11/12 23:01 NO uncontrolled hemorrhage observed. A: The patient is alert. Airway: patent. wg Breathing/Chest: Respiratory pattern: regular, Respiratory effort: spontaneous, Breath sounds: clear. Circulation: Pulses: palpable right radial artery, right dorsalis pedis artery, left radial artery and left dorsalis pedis artery. Disability Alert. Exposure/Environment: There is no evidence of uncontrolled external bleeding. Obvious injury(ies) are noted at this time: skin tear/abrasion. Reassessment Airway Airway Patent. 23:52 Reassessment Breathing/Chest Respiratory pattern Regular Respiratory effort Spontaneous bc5 Unlabored. Secondary Survey: 23:01 Musculoskeletal: No deficits noted. Injury Description: Abrasion sustained to knees and wg elbows. Assessment: 23:01 General: Appears in no apparent distress. comfortable, obese, Behavior is calm, wg cooperative, appropriate for age. Pain: Denies pain. Neuro: Neuro: Reports weakness in legs. EENT: Reports. Cardiovascular: No deficits noted. Respiratory: No deficits noted. GI: No deficits noted. : No deficits noted. Derm: No deficits noted. Musculoskeletal: No deficits noted. 11/13 03:16 Reassessment: Orthostatics Lying BP 122/65 HR 64, Sitting BP 136/56 HR 67, Standing BP bc5 142/116 HR 76. Vital Signs: 11/12 23:01 BP 144 / 74; Pulse 74; Resp 18; Temp 98.4; Pulse Ox 100% on R/A; Weight 68.04 kg; wg Height 5 ft. 0 in. (152.40 cm); Pain 0/10; 11/13 02:56 BP 139 / 64; Pulse 65; Resp 17; Pulse Ox 99% on R/A; Pain 0/10; bc5 05:53 BP 154 / 58; Pulse 65; Resp 15; Temp 98.7(O); Pulse Ox 99% on R/A; Pain 0/10; bc5 11/12 23:01 Body Mass Index 29.29 (68.04 kg, 152.40 cm) Elliston Coma Score: 11/12 23:01 Eye Response: spontaneous(4). Verbal Response: oriented(5). Motor Response: obeys commands(6). Total: 15. Trauma Score (Adult): 23:01 Eye Response: spontaneous(1); Verbal Response: oriented(1); Motor Response: obeys commands(2); Systolic BP: > 89 mm Hg(4); Respiratory Rate: 10 to 29 per min(4); Jeanmarie Score: 15; Trauma Score: 12 NIH Stroke Scale Scores: 23:12 NIHSS Score: 0 ED Course: 22:52 Patient arrived in ED. mr 22:52 Jose Lott MD is Private Physician. mr 23:01 Patient has correct armband on for positive identification. wg 23:08 Triage completed. wg 23:21 Page, Pedro, PA is PHCP. cp 23:21 Pedro Farrell MD is Attending Physician. cp 23:51 Lea Jaimes, TONI is Primary Nurse. bc5 23:52 No provider procedures requiring assistance completed. bc5 09/16 00:05 Patient maintains SpO2 saturation greater than 95% on room air. bc5 00:05 Thermoregulation: n/a. bc5 00:06 Arm band placed on. bc5 00:13 XRAY Chest (1 view) In Process Unspecified. EDMS 00:13 XRAY Tib Fib LEFT In Process Unspecified. EDMS 00:13 XRAY Knee RIGHT 3 view In Process Unspecified. EDMS 00:50 CT Head C Spine In Process Unspecified. EDMS 02:56 River Barnett MD is Hospitalizing Provider. cp 02:56 Yunier Barnett MD is Hospitalizing Provider. cp 18:57 IV discontinued, intact, bleeding controlled, No redness/swelling at site. Pressure tr6 dressing applied. Administered Medications: 01:35 Not Given (Patient Refused): NS 0.9% 250 ml IV at bolus once bc5 03:12 Drug: Aspirin Chewable Tablet 324 mg Route: PO; bc5 Intake: 00:06 N/A bc5 Outcome: 02:57 Decision to Hospitalize by Provider. cp 18:56 Discharged to home via wheelchair, with family. tr6 18:56 Condition: improved 18:56 Discharge instructions given to patient, family, Instructed on discharge instructions, follow up and referral plans. no drinking with medication, medication usage, safety practices, Demonstrated understanding of instructions, follow-up care, medications, ambulating with walker Prescriptions given X 18:57 Patient's length of stay in the Emergency Department was greater than 2 hours. tr6 18:57 Patient left the ED. tr6 NIH Stroke Scale - NIH Stroke Score Date: 11/12/2020 Time: 23:12 Total Score = 0 1a. Level of Consciousness (LOC) - 0(Alert) 1b. Level of Consciousness (LOC) (Month \\T\\ Age) - 0(Both) 1c. LOC Commands (Open \\T\\ Closes Eyes/Marketing Sales Manager) - 0(Both) 2. Best Gaze (Lateral Gaze Paresis) - 0(Normal) 3. Visual Field Loss - 0(No visual loss) 4. Facial Palsy - 0(Normal) 5a. Left Arm: Motor (10-second hold) - 0(No drift) 5b. Right Arm: Motor (10-second hold) - 0(No drift) 6a. Left Leg: Motor (5-second hold - always test supine) - 0(No drift) 6b. Right Leg: Motor (5-second hold - always test supine) - 0(No drift) 7. Limb Ataxia (finger/nose \\T\\ heel/kelley - test with eyes open) - 0(Absent) 8. Sensory Loss (pinprick arms/legs/face) - 0(Normal) 9. Best Language: Aphasia (description/naming/reading) - 0(No aphasia) 10. Dysarthria (speech clarity - read or repeat words) - 0(Normal) 11. Extinction and Inattention (visual/tactile/auditory/spatial/personal) - 0(No abnormality) Initials: wg Signatures: Dispatcher [employer] Elena Chin Corey, PA PA cp Ramnanan, Tiffany, RN RN tr6 Austin Rajan RN wg Corado, Bella, RN RN bc5
--- NOTE | 2020-11-13 02:58 | EDPHYS ---
Physician Documentation [facility] Name: Mari Dawkins Age: 75 yrs Sex: Female : 1945 Arrival Date: 11/12/2020 Time: 22:52 Bed 18 Private MD: Jose Lott ED Physician Pedro Farrell HPI: 11/12 23:55 This 75 yrs old Female presents to ER via Ambulatory with complaints of Fall cp Injury. 23:55 Details of fall: The patient fell from an upright position, while standing. cp 23:55 Patient reports she was sitting in chair outside of home when she stood up, legs became cp weak and caused her to fall to ground. No reported LOC. No injuries. Patient reports she was unable to get up from ground. Patient denies chest pain, denies abdominal pain, denies headache. 23:55 Associated injuries: The patient sustained no obvious injury. cp Historical: - Allergies: 23:13 Codeine; wg 23:13 Morphine; wg - Home Meds: 23:13 losartan Oral [Active]; wg 23:14 aspirin 81 mg oral tab [Active]; wg 23:17 Meclizine Oral [Active]; raloxifene oral [Active]; carvedilol Oral [Active]; wg fenofibrate oral [Active]; - PMHx: 23:13 Hypertension; High Cholesterol; wg - Code Status:: Full code. - Immunization history: Last tetanus immunization:. - Social history:: Smoking status: Patient denies any tobacco usage or history of. ROS: 11/13 00:00 Constitutional: Negative for body aches, chills, fever, poor PO intake. cp 00:00 Cardiovascular: Negative for chest pain, edema, palpitations. cp 00:00 Respiratory: Negative for cough, shortness of breath, wheezing. 00:00 Abdomen/GI: Negative for abdominal pain, nausea, vomiting, and diarrhea, black/tarry stool, rectal bleeding. 00:00 Back: Negative for pain at rest, pain with movement. cp 00:00 Neuro: Positive for weakness, of the right leg and left leg, Negative for altered mental status, dizziness, headache, loss of consciousness, numbness, syncope. 00:00 Skin: Negative for cellulitis, rash. cp 00:00 All other systems are negative. Exam: 00:05 Constitutional: The patient appears in no acute distress, alert, awake, comfortable, cp non-diaphoretic, non-toxic, well developed, well nourished. 00:05 Head/Face: Normocephalic, atraumatic. cp 00:05 Eyes: Pupils: equal, round, and reactive to light and accomodation, Extraocular movements: intact throughout, Conjunctiva: normal, no exudate, no injection, Sclera: no appreciated abnormality, Lids and lashes: appear normal, bilaterally. 00:05 ENT: External ear(s): are unremarkable, Nose: is normal, Mouth: Lips: moist, Oral mucosa: moist, Posterior pharynx: Airway: no evidence of obstruction, patent. 00:05 Neck: ROM/movement: is normal, is supple, without pain, no range of motions limitations, no nuchal rigidity. 00:05 Chest/axilla: Inspection: normal. 00:05 Cardiovascular: Rate: normal, Rhythm: regular, Edema: is not appreciated, JVD: is not appreciated. 00:05 Respiratory: the patient does not display signs of respiratory distress, Respirations: normal, no use of accessory muscles, no retractions, labored breathing, is not present, Breath sounds: are clear throughout, no decreased breath sounds, no stridor, no wheezing. 00:05 Abdomen/GI: Inspection: abdomen appears normal, Palpation: abdomen is soft and non-tender, in all quadrants. 00:05 Back: pain, is absent, ROM is normal. 00:05 Neuro: Orientation: to person, place \\T\\ time. Mentation: is normal, Cerebellar function: is grossly normal, Motor: moves all fours, strength is normal, Sensation: is normal. 01:38 ECG was reviewed by the Attending Physician. cp Vital Signs: 11/12 23:01 BP 144 / 74; Pulse 74; Resp 18; Temp 98.4; Pulse Ox 100% on R/A; Weight 68.04 kg; wg Height 5 ft. 0 in. (152.40 cm); Pain 0/10; 11/13 02:56 BP 139 / 64; Pulse 65; Resp 17; Pulse Ox 99% on R/A; Pain 0/10; bc5 05:53 BP 154 / 58; Pulse 65; Resp 15; Temp 98.7(O); Pulse Ox 99% on R/A; Pain 0/10; bc5 11/12 23:01 Body Mass Index 29.29 (68.04 kg, 152.40 cm) NIH Stroke Scale Scores: 11/12 23:12 NIHSS Score: 0 Jeanmarie Coma Score: 23:01 Eye Response: spontaneous(4). Verbal Response: oriented(5). Motor Response: obeys commands(6). Total: 15. Trauma Score (Adult): 23:01 Eye Response: spontaneous(1); Verbal Response: oriented(1); Motor Response: obeys commands(2); Systolic BP: > 89 mm Hg(4); Respiratory Rate: 10 to 29 per min(4); [place] Score: 15; Trauma Score: 12 MDM: 23:22 Patient medically screened. [facility] 11/13 00:00 Differential diagnosis: fracture, multiple trauma, cardiac arrythmia. 02:30 Data reviewed: vital signs, nurses notes, lab test result(s), EKG, radiologic studies, cp CT scan, plain films. 02:30 Test interpretation: by ED physician or midlevel provider: ECG, plain radiologic studies. 02:55 Counseling: I had a detailed discussion with the patient and/or guardian regarding: the historical points, exam findings, and any diagnostic results supporting the discharge/admit diagnosis, lab results, radiology results. 02:55 Physician consultation: Deacon Davis was contacted at 02:45, regarding admission, to the telemetry unit. patient's condition. ED course: will admit for continued observation due to elevated troponin. 11/12 23:50 Order name: Basic Metabolic Panel; Complete Time: 01:20 11/13 01:21 Interpretation: Normal except: NA 133; CO2 20; CRE 0.53. 11/12 23:50 Order name: CBC with Diff; Complete Time: 00:55 11/13 00:56 Interpretation: Normal except: WBC 11.00; HGB 15.1; SEEMA% 77.0; LYM% 13.8; NEUT A 8.5. 11/12 23:50 Order name: LFT's; Complete Time: 01:20 11/12 23:50 Order name: Magnesium; Complete Time: 01:20 11/12 23:50 Order name: PT-INR; Complete Time: 00:55 11/12 23:50 Order name: Troponin (emerg Dept Use Only); Complete Time: 01:20 11/12 23:50 Order name: XRAY Chest (1 view) 11/12 23:50 Order name: CT Head C Spine 11/12 23:50 Order name: Urine Microscopic Only; Complete Time: 02:29 11/12 23:50 Order name: XRAY Tib Fib LEFT 11/12 23:50 Order name: XRAY Knee RIGHT 3 view 11/13 03:30 Order name: COVID-19 : Document "Date of Symptom Onset" if Symptomatic. 11/13 05:09 Order name: SARS-COV-2 RT PCR EDMS 11/12 23:50 Order name: EKG; Complete Time: 23:50 11/12 23:50 Order name: Cardiac monitoring; Complete Time: 01:21 11/12 23:50 Order name: EKG - Nurse/Tech; Complete Time: 01:35 11/12 23:50 Order name: IV Saline Lock; Complete Time: 01:21 11/12 23:50 Order name: Labs collected and sent; Complete Time: 01:21 11/12 23:50 Order name: O2 Per Protocol; Complete Time: 01:21 11/12 23:50 Order name: O2 Sat Monitoring; Complete Time: 01:21 11/12 23:50 Order name: Urine Dipstick-Ancillary (obtain specimen); Complete Time: 02:23 11/13 03:10 Order name: Orthostatics; Complete Time: 05:41 la1 EC:38 Rate is 68 beats/min. Rhythm is regular. SD interval is normal. QRS interval is cp prolonged at 172 msec. QT interval is prolonged at 512 msec. T waves are Inverted in leads I, aVL, V6. Interpreted by me. Reviewed by me. Administered Medications: 01:35 Not Given (Patient Refused): NS 0.9% 250 ml IV at bolus once bc5 03:12 Drug: Aspirin Chewable Tablet 324 mg Route: PO; bc5 Disposition: 03:35 Chart complete. 11/14 05:18 Co-signature as Attending Physician, Pedro Farrell MD I agree with the assessment and michael plan of care. Disposition Summary: 11/13/20 02:57 Hospitalization Ordered Hospitalization Status: Observation cp Provider: Yunier Barnett cp Condition: Stable cp Problem: new cp Symptoms: have improved cp Bed/Room Type: Standard cp Location: [facility] ER HOLD(11/13/20 03:40) tl1 Room Assignment: ERHOLD-(11/13/20 03:40) tl1 Diagnosis - Weakness cp Forms: - Medication Reconciliation Form cp - SBAR form cp NIH Stroke Scale - NIH Stroke Score Date: 11/12/2020 Time: 23:12 Total Score = 0 1a. Level of Consciousness (LOC) - 0(Alert) 1b. Level of Consciousness (LOC) (Month \\T\\ Age) - 0(Both) 1c. LOC Commands (Open \\T\\ Closes Eyes/In Home Baby Sitter) - 0(Both) 2. Best Gaze (Lateral Gaze Paresis) - 0(Normal) 3. Visual Field Loss - 0(No visual loss) 4. Facial Palsy - 0(Normal) 5a. Left Arm: Motor (10-second hold) - 0(No drift) 5b. Right Arm: Motor (10-second hold) - 0(No drift) 6a. Left Leg: Motor (5-second hold - always test supine) - 0(No drift) 6b. Right Leg: Motor (5-second hold - always test supine) - 0(No drift) 7. Limb Ataxia (finger/nose \\T\\ heel/kelley - test with eyes open) - 0(Absent) 8. Sensory Loss (pinprick arms/legs/face) - 0(Normal) 9. Best Language: Aphasia (description/naming/reading) - 0(No aphasia) 10. Dysarthria (speech clarity - read or repeat words) - 0(Normal) 11. Extinction and Inattention (visual/tactile/auditory/spatial/personal) - 0(No abnormality) Initials: wg Signatures: Dispatcher [employer] EDPedro Barron MD MD cha Attema, Lee, JAZLYN-C FIRE EXTINGUISHER TESTER-Cla1 Alma Mora, RN RN tl1 Pedro Corona PA PA cp Gamba, Liam, RN Lea Jaimes RN RN bc5 Corrections: (The following items were deleted from the chart) 11/13 00:56 00:56 Normal except: WBC 11.00; HGB 15.1; SEEMA% 77.0; LYM% 13.8. cp cp 03:40 02:57 Telemetry/MedSurg (observation) [facility] 03:40 02:57 cp [facility] 11/14 02:56 02:55 Chart complete. [facility]
--- NOTE | 2020-11-13 03:25 | P.HP ---
Certification for Inpatient Patient admitted to: Observation With expected LOS: <2 Midnights Patient will require the following post-hospital care: None Practitioner: I am a practitioner with admitting privileges, knowledge of patient current condition, hospital course, and medical plan of care. Services: Services provided to patient in accordance with Admission requirements found in Title 42 Section 412.3 of the Code of Federal Regulations Patient History Date of Service: 11/13/20 [facility] History of Present Illness: 75-year-old female with history of hypertension, hyperlipidemia, vertigo presents emergency department for syncope/near syncope. Patient was at home with her having a beer reports that she stood up and immediately felt very lightheaded like her legs were getting give out, her assisted her to the ground. Patient reports she has had previous falls related to vertigo and episodes of syncope but this was different as she felt very lightheaded. Patient was evaluated in the emergency department vital signs were stable labs were remarkable for mildly elevated troponin 0 0.05. Patient with similar admission in February of this year had MRI brain, echocardiogram, carotid ultrasound all without significant acute findings. Patient was bradycardic during previous admission but currently sinus rhythm with a rate of 66. Patient still feels slightly uneasy on her feet. Orthostatic vital signs pending at this time ED provider wishes to admit under observation. Allergies codeine Allergy (Mild, Verified 11/24/16 23:04) Unknown Home Medications: Ascorbic Acid [Vitamin C*] 500 mg PO DAILY 11/24/16 Aspirin [Aspirin EC 81 MG] 81 mg PO DAILY 11/24/16 Fluticasone [Flonase 50MCG Nasal [place]*] 2 spray SERINA DAILY 11/24/16 Losartan Potassium 100 mg PO DAILY 11/24/16 Multivitamin [Multiple Vitamins] 1 tab PO DAILY 11/24/16 Raloxifene HCl [Evista*] 60 mg PO DAILY 11/24/16 carvediloL [Coreg*] 12.5 mg PO BID 11/24/16 Ciprofloxacin HCl [Cipro 500 MG Tablet] 500 mg PO BID #14 tab 12/03/16 Famotidine [Pepcid] 20 mg PO BID #60 tab 12/03/16 - Past Medical/Surgical History Diabetic: No -: HTN -: High Cholesterol -: Hyst -: Tonsilectomy Psychosocial/ Personal History: Patient is retired and lives with her - Family History Father -: Cancer Notes: Lung CA Mother -: Cancer Notes: Uterine Cancer Sister Notes: TB - Social History Alcohol use: Yes CD- Drugs: No Caffeine use: Yes Place of Residence: Home Review of Systems 10-point ROS is otherwise unremarkable Cardiovascular: Light Headedness, As per HPI Physical Examination - Physical Exam General: Alert, In no apparent distress, Oriented x3 HEENT: Atraumatic, PERRLA, Mucous membr. moist/pink, EOMI, Sclerae nonicteric Neck: Supple, 2+ carotid pulse no bruit, No LAD, Without JVD or thyroid abnormality Respiratory: Clear to auscultation bilaterally, Normal air movement Cardiovascular: Regular rate/rhythm, Normal S1 S2 Gastrointestinal: Normal bowel sounds, No tenderness Musculoskeletal: No tenderness Integumentary: No rashes Neurological: Normal gait, Normal speech, Normal strength at 5/5 x4 extr, Normal tone, Normal affect Lymphatics: No axilla or inguinal lymphadenopathy - Studies Laboratory Data (last 24 hrs) 11/13/20 00:20: PT 11.7, INR 1.02 11/13/20 00:20: WBC 11.00 H, Hgb 15.1 H, Hct 44.2, Plt Count 286 11/13/20 00:20: Sodium 133 L, Potassium 3.5, BUN 8, Creatinine 0.53 L, Glucose 96, Magnesium 1.8, Total Bilirubin 0.8, AST 25, ALT 19, Alkaline Phosphatase 51 Assessment and Plan - Plan Assessment: Near syncope, mildly elevated troponin HTN HLD Plan: Near syncope, mildly elevated troponin: Initial troponin 0.05, normal sinus rhythm with rate of 66 on the monitor at this time. Orthostatic vital signs pending, patient does have history of falls/syncope per her but patient states that this episode was different in someway as she felt lightheaded. Patient with recent work-up in February for syncope with echocardiogram, carotid ultrasound, MRI which were unremarkable. Will trend troponins, give fluids if orthostatic positive and have patient evaluated by physical therapy. Patient can likely be discharged this evening or tomorrow. If troponin trends up will consult cardiology provide anticoagulation. HTN: Obtain and continue home meds HLD: Obtain and continue medications. DVT PPX: Lovenox Code status: Full Discharge Plan: Home Plan to discharge in: 24 Hours - Advance Directives Does patient have a Living Will: No Does patient have a Durable POA for Healthcare: Yes - Code Status/Comfort Care Code Status Assessed: Yes (Full code) Critical Care: No Time Spent Managing Pts Care (In Minutes): 55
[2020-11-13] MEDS ORDERED: ASPIRIN 81 MG CHEWABLE TABLET ONE (03:35)
[2020-11-13] MEDS ORDERED: NA CHLORIDE 0.9% 1,000 ML IV SCH (04:07)
[2020-11-13] MEDS ORDERED: ACETAMINOPHEN 500 MG TAB PO PRN (04:07)
[2020-11-13] MEDS ORDERED: ONDANSETRON 4 MG/2 ML VIAL IV PRN (04:07)
--- NOTE | 2020-11-13 08:40 | RAD REPORT ---
EXAM DESCRIPTION: RAD - Chest Single View - 11/13/2020 12:13 am CLINICAL HISTORY: weakness COMPARISON: February 2020 TECHNIQUE: AP portable chest image was obtained 11/13/2020 12:13 am . FINDINGS: No new mass or consolidation. Interstitial pattern is similar to comparison. Heart and vas culature are normal. No measurable pleural effusion and no pneumothorax. No acute bony abnormality se en. No acute aortic findings suspected. IMPRESSION: No acute cardiopulmonary process. No significant change from comparison study.
--- NOTE | 2020-11-13 08:42 | RAD REPORT ---
EXAM DESCRIPTION: RAD - Tib Fib Left - 11/13/2020 12:13 am CLINICAL HISTORY: Pain COMPARISON: None. FINDINGS: A single portable AP projection of the left tib-fib was submitted. No fracture is identified. No acute or destructive bone process. Knee joint degenerative changes are present within the joint not fully evaluated. No foreign body or other soft tissue abnormality. IMPRESSION: Single view left tib-fib examination showing no acute or suspicious finding.
--- NOTE | 2020-11-13 08:43 | RAD REPORT ---
EXAM DESCRIPTION: RAD - Knee Right 3 View - 11/13/2020 12:13 am CLINICAL HISTORY: PAIN COMPARISON: <Comparisons> FINDINGS: No fracture, dislocation or periosteal reaction.No joint effusion seen. No joint space erick rowing. Degenerative changes are present in the subcortical area of each femoral condyle. No tibial p lateau depression. No foreign body or other soft tissue abnormality. IMPRESSION: Right knee degenerative change with no acute finding identifiable. Clinical concerns for internal derangement or occult bony injury could be further assessed with MR im aging.
[2020-11-13] MEDS ORDERED: ASPIRIN EC 81 MG TAB PO SCH (09:00)
[2020-11-13] MEDS ORDERED: ENOXAPARIN 40 MG/0.4 ML SQ SCH (09:00)
[2020-11-13 11:46] VITALS: BP 162/79
--- NOTE | 2020-11-13 12:02 | RAD REPORT ---
EXAM DESCRIPTION: CT - [id number] - 11/13/2020 6:34 am COMPARISON: CT head March 09, 2020 CLINICAL HISTORY: [facility] MAIN fall TECHNIQUE: Axial images were obtained from skull base to vertex without intravenous contrast. Imag es viewed on bone and brain windows. Multiplanar reformats were performed. Automated exposure contr ol was utilized on this examination as a dose lowering technique. FINDINGS: Brain parenchyma, ventricles, dura, meninges, and extra-axial spaces: Moderate generalized cerebral and cerebellar volume loss is present. Mild hypodensities in the subcortical white matter o f both hemispheres are nonspecific but likely relate to chronic small vessel disease. No acute intrac ranial hemorrhage or abnormal extra-axial fluid collections. Vascular structures: No hyperdense arteries or veins. Calvarium, mastoid air cells, paranasal sinuses and orbits: The calvarium is normal. The mastoid air cells are clear. Visualized paranasal sinuses are unremarkable. Orbital structures are unremarkable. EXAM DESCRIPTION: CT Cervical Spine COMPARISON: CT of the cervical spine March 09, 2020 CLINICAL HISTORY: [facility] MA[facility] fall TECHNIQUE: Axial CT images were obtained through the entire cervical spine without contrast. Sagit phil and coronal reconstructions are provided. Automated exposure control was utilized on this examina tion as a dose lowering technique. FINDINGS: Vertebrae: Vertebral statures and alignment are normal. No acute fracture, dislocation o r destructive osseous process is present. Spinal canal, foramina, and facet joints: Greatest foraminal stenoses are moderate at left C4, left C5 due to uncovertebral and facet hypertrop hy. Paraspinous soft-tissues: Normal. Thyroid: Normal. Other Findings: None. HEAD IMPRESSION: 1. No acute intracranial abnormality. 2. Moderate senescent changes. C-SPINE IMPRESSION: No acute findings of the cervical spine. Electronically signed by: Jhon Eckert MD 11/13/2020 1:31 AM CDT Due to temporary technical issues with the PACS/Fluency reporting system, reports are being signed by the in house radiologist without review as a courtesy to ensure prompt reporting. The interpreting r adiologist is fully responsible for the content of the report.
[2020-11-13 19:37] VITALS: O2SAT 99
[2020-11-13 19:38] VITALS: TEMP 98.7
== END 2020-11-13 18:56 | disposition home or self-care (01) ==
LOC: ER 22:47 → ERHOLD 11-13 03:33
PROVIDERS: ADMIT Hospitalist; ATTEND Hospitalist
DX: R55 Syncope and collapse (principal); I10 Essential (primary) hypertension; E78.5 Hyperlipidemia, unspecified; R77.8 Other specified abnormalities of plasma proteins; R53.1 Weakness; E78.00 Pure hypercholesterolemia, unspecified; Z91.81 History of falling; Z20.822 Contact with and (suspected) exposure to COVID-19; Z88.6 Allergy status to analgesic agent; Z79.82 Long term (current) use of aspirin; Z90.710 Acquired absence of both cervix and uterus; Z80.1 Family history of malignant neoplasm of trachea, bronchus and lung; Z80.49 Family history of malignant neoplasm of other genital organs
CPT/HCPCS: 93005; 85025; 80048; 36415; 83735; 85610; 80076; 81015; 84484; 70450; 72125; 71045; 73562; 73590; 97116; 97161; 99284; U0003; G0378 ×2